=== PATIENT | female | born 1950 | race African-American/Black ===

== ENCOUNTER 2019-05-10 20:49 | Emergency (ER) | payer MEDICAID, MEDICARE, OTHER ==
[~2019-05-10] VITALS: Ht 165.1 cm; Wt 106.1 kg
[2019-05-10] MEDS ORDERED: METFORMIN HCL500 M1 ORAL (20:59)
[2019-05-10] MEDS ORDERED: OXYBUTYNIN CHLOR5 M1 ORAL (20:59)
[2019-05-10 21:00] VITALS: BP 184/113
--- NOTE | 2019-05-10 21:00 | NUR ---
ED Nurse Note: Patient walked in to ED with walker from home c/o dizziness ansd urinary frequency x5 days. As per pt, she hasnt been taking her BP meds for a week. BP at triage is 184/113. Not in any distress. Denies any pain at this time. Pt placed on cardiac catheterization technologist.
--- NOTE | 2019-05-10 21:10 | NUR ---
ED Nurse Note: ERMD at bedside.
--- NOTE | 2019-05-10 21:15 | NUR ---
ED Nurse Note: IV line established. Blood specimen collected and sent to lab.
[2019-05-10 21:51] LABS: BASOPHILS % (AUTO) 1.8 % (0.0-2.0); EOSINOPHILS % (AUTO) 3.3 % (0.0-3.0); HEMATOCRIT 47.4 % (37.0-47.0); HEMOGLOBIN 14.7 G/DL (12.0-16.0); LYMPHOCYTES % (AUTO) 42.3 % (20.0-45.0); MEAN CORPUSCULAR VOLUME 84 FL (80-99); MONOCYTES % (AUTO) 9.4 % (1.0-10.0); NEUTROPHILS % (AUTO) 43.2 % (45.0-75.0); PLATELET COUNT 166 K/UL (150-450); RED BLOOD COUNT 5.68 M/UL (4.20-5.40); WHITE BLOOD COUNT 5.7 K/UL (4.8-10.8)
[2019-05-10 21:51] LABS: APPEARANCE,URINE CLEAR; BILIRUBIN, URINE NEGATIVE (NEGATIVE); COLOR,URINE PALE YELLOW; GLUCOSE, URINE (UA) NEGATIVE (NEGATIVE); KETONES,URINE NEGATIVE (NEGATIVE); LEUKOCYTE ESTERASE ,URINE 1+ (NEGATIVE); NITRITE,URINE NEGATIVE (NEGATIVE); PH,URINE 6.5 (4.5-8.0); PROTEIN,URINE 1+ (NEGATIVE); UROBILINOGEN,URINE NORMAL MG/DL (0.0-1.0)
--- NOTE | 2019-05-10 21:54 | Diagnostic Imaging Report ---
EXAM: XR Chest, 1 View CLINICAL HISTORY: DIZZY TECHNIQUE: Frontal view of the chest. COMPARISON: No relevant prior studies available. FINDINGS: Lungs: No consolidation. Pleural space: Unremarkable. No pneumothorax. Heart/mediastinum: Mild cardiomegaly. Tortuous, calcified thoracic aorta. Enlarged central pulmonary arteries suggesting hypertension Bones/joints: Mild degenerative changes. Mild thoracolumbar levocurvature. IMPRESSION: Mild cardiomegaly. No overt pulmonary edema. No consolidation. Enlarged central pulmonary arteries suggesting hypertension.
[2019-05-10 22:03] LABS: ANION GAP 12 mmol/L (5-15); BLOOD UREA NITROGEN 16 mg/dL (7-18); CALCIUM 10.1 MG/DL (8.5-10.1); CARBON DIOXIDE 26 MMOL/L (21-32); CHLORIDE 104 MMOL/L (98-107); CREATININE 0.8 MG/DL (0.55-1.30); POTASSIUM 3.2 MMOL/L (3.5-5.1); SODIUM 142 MMOL/L (136-145)
[2019-05-10 22:14] LABS: ALANINE AMINOTRANSFERASE 30 U/L (12-78); ALBUMIN 3.6 G/DL (3.4-5.0); ALBUMIN/GLOBULIN RATIO 0.7 (1.0-2.7); ALKALINE PHOSPHATASE 77 U/L (46-116); ASPARTATE AMINO TRANSFERASE 28 U/L (15-37); BILIRUBIN,TOTAL 0.5 MG/DL (0.2-1.0)
--- NOTE | 2019-05-10 22:30 | Emergency Room Report ---
History of Present Illness General Chief Complaint: Dizziness Source: Patient Present Illness HPI 68-year-old female presents ED for evaluation. Coming from home complaining of dizziness and weakness for the last 5 days. BP high in triage. States that she ran out of her medication about 5 days ago. Denies any chest pain or shortness of breath. Notes increased urinary frequency. Denies fevers or chills. Denies flank pain. Denies nausea or vomiting. No other aggravating relieving factors. Denies any other associated symptoms Allergies: Coded Allergies: No Known Allergies (Unverified , 05/10/19) Patient History Past Medical History: DM, HTN, COPD Past Surgical History: none Pertinent Family History: none Social History: Denies: smoking, alcohol use, drug use Now: No Immunizations: UTD Reviewed Nursing Documentation: PMH: Agreed; PSxH: Agreed Nursing Documentation-PMH Past Medical History: No History, Except For Hx Hypertension: Yes Hx COPD: Yes Hx Diabetes: Yes Review of Systems All Other Systems: negative except mentioned in HPI Physical Exam Vital Signs Date Time Temp Pulse Resp B/P (MAP) Pulse Ox O2 Delivery O2 Flow Rate FiO2 05/10/19 20:55 98.4 97 16 184/113 (136) 94 Room Air Sp02 EP Interpretation: reviewed, normal General Appearance: no apparent distress, alert, GCS 15, non-toxic Head: normocephalic, atraumatic Eyes: bilateral eye normal inspection, bilateral eye PERRL ENT: hearing grossly normal, normal pharynx, no angioedema, normal voice Neck: full range of motion, supple/symm/no masses Respiratory: chest non-tender, lungs clear, normal breath sounds, speaking full sentences Cardiovascular #1: regular rate, rhythm, no edema Cardiovascular #2: 2+ carotid (R), 2+ carotid (L), 2+ radial (R), 2+ radial (L) , 2+ dorsalis pedis (R), 2+ dorsalis pedis (L) Gastrointestinal: normal bowel sounds, non tender, soft, non-distended, no guarding, no rebound Rectal: deferred Genitourinary: normal inspection, no CVA tenderness Musculoskeletal: back normal, normal range of motion, gait/station normal, non- tender Neurologic: alert, motor strength/tone normal, oriented x3, sensory intact, responsive, speech normal Psychiatric: judgement/insight normal, memory normal, mood/affect normal, no suicidal/homicidal ideation Reflexes: 3+ bicep (R), 3+ bicep (L), 3+ tricep (R), 3+ tricep (L), 3+ knee (R) , 3+ knee (L) Skin: no rash Lymphatic: no adenopathy Medical Decision Making Diagnostic Impression: Primary Impression: Hypertension Qualified Codes: I10 - Essential (primary) hypertension ER Course Hospital Course 68-year-old female presents ED complaining of elevated BP, c/o dizziness Differential diagnoses include: hypertensive urgency, hypertensive emergency, arrythmia, [place]/ACS Clinical course Patient placed on stretcher. After initial history and physical I ordered labs , EKG, chest x-ray. labs reviewed- all electrolytes normal, troponins negative, no leukocytosis, hemoglobin/hematocrit stable, UA negative EKG - NSR no acute ischemic changes interpreted by me Chest x-ray-no cardiomegaly, no rib fracture, no pneumothorax, no acute process BP improved after hydralazine. No focal deficits. Vitals stable. Resting comfortably. I discussed findings with patient. Labs unremarkable. I offered option for admission but patient declined stating she feels better and prefer to be discharged. It appears that she does not have a PMD at this time. I will provide her with refills of her BP meds and provide her with some PMD referrals. Safe for discharge for close outpatient follow-up I. I feel this is a highly complex case requiring extensive working including EKG/Rhythm strip, Xray/CT/US, Blood/urine lab work, repeat exams while in ED, and administration of strong opiates/narcotics for pain control, admission to hospital or close patient follow up. Diagnosis - hypertension Stable and discharged to home with Rx Atenolol, Norvasc. Instructed to followup with PMD. Return to ED if symptoms recur or worsen Labs Test 05/10/19 21:15 05/10/19 21:39 White Blood Count 5.7 K/UL (4.8-10.8) Red Blood Count 5.68 M/UL (4.20-5.40) Hemoglobin 14.7 G/DL (12.0-16.0) Hematocrit 47.4 % (37.0-47.0) Mean Corpuscular Volume 84 FL (80-99) Mean Corpuscular Hemoglobin 25.9 PG (27.0-31.0) Mean Corpuscular Hemoglobin Concent 31.0 G/DL (32.0-36.0) Red Cell Distribution Width 14.0 % (11.6-14.8) Platelet Count 166 K/UL (150-450) Mean Platelet Volume 11.7 FL (6.5-10.1) Neutrophils (%) (Auto) 43.2 % (45.0-75.0) Lymphocytes (%) (Auto) 42.3 % (20.0-45.0) Monocytes (%) (Auto) 9.4 % (1.0-10.0) Eosinophils (%) (Auto) 3.3 % (0.0-3.0) Basophils (%) (Auto) 1.8 % (0.0-2.0) Sodium Level 142 MMOL/L (136-145) Potassium Level 3.2 MMOL/L (3.5-5.1) Chloride Level 104 MMOL/L (98-107) Carbon Dioxide Level 26 MMOL/L (21-32) Anion Gap 12 mmol/L (5-15) Blood Urea Nitrogen 16 mg/dL (7-18) Creatinine 0.8 MG/DL (0.55-1.30) Estimat Glomerular Filtration Rate > 60 mL/min (>60) Glucose Level 117 MG/DL (74-106) Calcium Level 10.1 MG/DL (8.5-10.1) Total Bilirubin 0.5 MG/DL (0.2-1.0) Aspartate Amino Transf (AST/SGOT) 28 U/L (15-37) Alanine Aminotransferase (ALT/SGPT) 30 U/L (12-78) Alkaline Phosphatase 77 U/L (46-116) Troponin I 0.000 ng/mL (0.000-0.056) Pro-B-Type Natriuretic Peptide 199 pg/mL (0-125) Total Protein 8.6 G/DL (6.4-8.2) Albumin 3.6 G/DL (3.4-5.0) Globulin 5.0 g/dL Albumin/Globulin Ratio 0.7 (1.0-2.7) Urine Color Pale yellow Urine Appearance Clear Urine pH 6.5 (4.5-8.0) Urine Specific [place] 1.015 (1.005-1.035) Urine Protein 1+ (NEGATIVE) Urine Glucose (UA) Negative (NEGATIVE) Urine Ketones Negative (NEGATIVE) Urine Blood 1+ (NEGATIVE) Urine Nitrite Negative (NEGATIVE) Urine Bilirubin Negative (NEGATIVE) Urine Urobilinogen Normal MG/DL (0.0-1.0) Urine Leukocyte Esterase 1+ (NEGATIVE) Urine RBC 2-4 /HPF (0 - 2) Urine WBC 0-2 /HPF (0 - 2) Urine Squamous Epithelial Cells Few /LPF (NONE/OCC) Urine Bacteria Few /HPF (NONE) EKG Diagnostic Results Rate: normal Rhythm: NSR ST Segments: no acute changes ASA given to the pt in ED: No Rhythm Strip Diag. Results EP Interpretation: yes Rhythm: NSR, no PVC's, no ectopy Chest X-Ray Diagnostic Results Chest X-Ray Diagnostic Results : Chest X-Ray Ordered: Yes # of Views/Limited/Complete: 1 View Indication: Other EP Interpretation: Yes Interpretation: no consolidation, no effusion, no pneumothorax, no acute cardiopulmonary disease Impression: No acute disease Electronically Signed by: Electronically signed by Naun Ashley MD Last Vital Signs Date Time Temp Pulse Resp B/P (MAP) Pulse Ox O2 Delivery O2 Flow Rate FiO2 05/10/19 21:15 184/113 05/10/19 21:00 97 16 Room Air 05/10/19 21:00 98.4 94 Status: improved Disposition: HOME, SELF-CARE Condition: Stable Scripts Atenolol* (TENORMIN*) 50 Mg Tablet 50 MG ORAL DAILY, #30 TAB Prov: Naun Ashley MD 05/10/19 Amlodipine Besylate (Norvasc) 10 Mg Tablet 10 MG ORAL DAILY, #30 TAB Prov: Naun Ashley MD 05/10/19 Metformin Hcl* (METFORMIN HCL*) 1,000 Mg Tablet 1000 MG ORAL BID for 30 Days, TAB Prov: Naun Ashley MD 05/10/19 Naun Ashley MD May 10, 2019 22:30
[2019-05-10] MEDS ORDERED: ATENOLOL50 MG ORAL (22:56)
[2019-05-10] MEDS ORDERED: METFORMIN HCL1000 M1 ORAL (22:56)
[2019-05-10] MEDS ORDERED: NORVASC10 MG ORAL (22:56)
[2019-05-10 23:11] VITALS: BP 155/89
--- NOTE | 2019-05-10 23:11 | NUR ---
ED Nurse Note: Pt cleared ERMD for discharge. DC instructions/prescription was given and explained to pt and verbalized understanding of teachings. All medical deviecs such as ID band and IV line removed. Pt is AAO x4, ambulatory with walker and left with all personal belongings. Pt is accompanied by her daughter.
== END 2019-05-10 23:11 | disposition home or self-care (01) ==
LOC: EMR 21:10
DX: I10 Essential (primary) hypertension (principal); E11.9 Type 2 diabetes mellitus without complications; J44.9 Chronic obstructive pulmonary disease, unspecified; Z76.0 Encounter for issue of repeat prescription
CPT/HCPCS: 36415; 71045; 80053; 81003; 83880; 84484; 85025; 93005; 96374; 99284; J0360; J7040